=== PATIENT | female | born 1990 | race Caucasian/White ===

== ENCOUNTER 2022-02-10 19:30 | Inpatient (IN) | payer BC ==
[~2022-02-10 19:30] MED LIST: Bupivacaine 0.25% HCL 30 ML VIAL ONE; Bupivacaine PF 0.5% 30 ML VIAL ONE
[2022-02-10 20:50] VITALS: BMI 33.5
[2022-02-10] MEDS ORDERED: Zolpidem Tartrate 5 MG TAB PO PRN (21:31)
[2022-02-10] MEDS ORDERED: Acetaminophen 500 MG TAB PO PRN (21:31)
[2022-02-10] MEDS ORDERED: Misoprostol 200 MCG TAB PR PRN (21:31)
[2022-02-10] MEDS ORDERED: HYDROcodone/Acetaminophen 5/325 mg Tablet PO PRN (21:31)
[2022-02-10] MEDS ORDERED: hydrALAZINE 20 MG/ML VIAL SLOW IVP PRN (21:31)
[2022-02-10] MEDS ORDERED: Carboprost 250 MCG/ML AMP IM PRN (21:31)
[2022-02-10] MEDS ORDERED: Ondansetron PF 4 MG/2 ML Vial IVP PRN (21:31)
[2022-02-10] MEDS ORDERED: Methylergonovine 0.2 MG/ML VIAL IM PRN (21:31)
[2022-02-10] MEDS ORDERED: Promethazine HCl 25 MG/ML VIAL IM PRN (21:31)
[2022-02-10] MEDS ORDERED: Butorphanol Tartrate 1 MG/ML VIAL SLOW IVP PRN (21:31)
[2022-02-10] MEDS ORDERED: Lidocaine 1% (PF) 30 ML VIAL SC PRN (21:31)
[2022-02-10] MEDS ORDERED: Ibuprofen 800 MG TAB PO PRN (21:31)
[2022-02-10] MEDS ORDERED: Diphenoxylate HCl/Atropine Tablet PO PRN (21:31)
[2022-02-10] MEDS ORDERED: NS w/ Oxytocin 30 units 500 ML IV SCH ×2 (21:45)
[2022-02-10] MEDS: Misoprostol 100 MCG TAB VAG SCH (21:56)
[2022-02-10 22:20] LABS: Mean Corpuscular HGB CONC 35.2 g/dL (32.0-36.0); Mean Corpuscular Hemoglobin 33.6 pg (27.0-33.0); Mean Corpuscular Volume 95.5 fl (81.6-98.3); Mean Platelet Volume 12.3 fl (7.4-10.4); Platelet Count 125 10x3/uL (150-450); RBC Distribution Width 13.4 % (11.5-14.5); Red Blood Cell (RBC) Count 3.57 10x6/uL (3.90-5.03); White Blood Cell (WBC) Count 7.7 10x3/uL (3.5-10.5)
[2022-02-10] MEDS: Lactated Ringer's 1,000 ML IV SCH (22:31)
[2022-02-10 22:57] LABS: HBSAg Index 0.19 S/CO (0-0.99); Hep B Surf Ag Non-Reactive S/CO (NonReactive)
[2022-02-10 22:58] LABS: Syphilis Antibody Nonreactive (Nonreactive); Syphilis Antibody Index 0.13 S/CO (<1.00 Non-Reactive)
[2022-02-11] MEDS: Misoprostol 100 MCG TAB VAG SCH ×3 (03:31→17:07)
[2022-02-11] MEDS ORDERED: Fentanyl 2 mcg/Bup 0.1% Cadd 100 ML ONE (08:02)
[2022-02-11] MEDS ORDERED: Moisturizing Cream (Eucerin) 113 GM JAR TOP PRN (09:03)
[2022-02-11] MEDS ORDERED: diphenhydrAMINE 50 MG/ML VIAL IVP PRN (09:03)
[2022-02-11] MEDS ORDERED: ePHEDrine Sulfate 50 MG/10 ML VIAL SLOW IVP PRN (09:03)
[2022-02-11] MEDS ORDERED: Acetaminophen 325 MG TAB PO PRN (09:03)
[2022-02-11] MEDS ORDERED: Ondansetron PF 4 MG/2 ML Vial IVP PRN ×2 (09:03→13:30)
[2022-02-11] MEDS ORDERED: Naloxone HCl 0.4 mg/ml Vial IVP PRN ×2 (09:03)
[2022-02-11] MEDS ORDERED: Lactated Ringer's 500 ML IV PRN (09:03)
[2022-02-11] MEDS ORDERED: Promethazine HCl 25 MG/ML VIAL IM PRN (09:03)
[2022-02-11] MEDS ORDERED: Fentanyl 2 mcg/Bupivacaine 0.1% Cassette 100 ML EPIDURAL SCH (09:15)
[2022-02-11] MEDS ORDERED: Communication Order-Pharmacy FS SCH (09:15)
[2022-02-11] MEDS ORDERED: Tranexamic Acid 1,000 MG/10 ML VIAL ONE (12:40)
[2022-02-11] MEDS ORDERED: Carboprost 250 MCG/ML AMP ONE (12:52)
[2022-02-11] MEDS ORDERED: Oxytocin 10 UNITS/ML VIAL ONE ×2 (12:53)
[2022-02-11] MEDS ORDERED: Lanolin Ointment 7 GM TUBE TOP PRN (13:30)
[2022-02-11] MEDS ORDERED: Benzocaine-Menthol 82.5 ML CAN TOP PRN (13:30)
[2022-02-11] MEDS ORDERED: diphenhydrAMINE 25 MG CAP PO PRN (13:30)
[2022-02-11] MEDS ORDERED: Preparation H Ointment 28 GM TUBE PR PRN (13:30)
[2022-02-11] MEDS ORDERED: HYDROcodone/Acetaminophen 5/325 mg Tablet PO PRN ×2 (13:30)
[2022-02-11] MEDS ORDERED: Milk Of Magnesia 30 ML UDCUP PO PRN (13:30)
[2022-02-11] MEDS ORDERED: Boostrix 0.5 ML (Tdap) VIAL (>/=7 yrs of age) IM ONE (13:30)
[2022-02-11] MEDS ORDERED: hydrALAZINE 20 MG/ML VIAL SLOW IVP PRN (13:30)
[2022-02-11] MEDS ORDERED: Bisacodyl 10 MG SUPP PR PRN (13:30)
[2022-02-11] MEDS ORDERED: Diphenoxylate HCl/Atropine Tablet PO SCH (15:45)
[2022-02-11] MEDS: Ibuprofen 800 MG TAB PO SCH ×2 (17:02→22:11)
[2022-02-11] MEDS: Ferrous Sulfate 325 MG TAB PO SCH (17:05)
[2022-02-11] MEDS: Lactated Ringer's 1,000 ML IV SCH (17:07)
[2022-02-11] MEDS: Docusate 100 MG CAP PO SCH (22:12)
[2022-02-12 03:49] LABS: Hemoglobin 9.4 g/dL (12.0-15.5); Mean Corpuscular HGB CONC 35.1 g/dL (32.0-36.0); Mean Corpuscular Hemoglobin 34.2 pg (27.0-33.0); Mean Corpuscular Volume 97.5 fl (81.6-98.3); Mean Platelet Volume 12.6 fl (7.4-10.4); Platelet Count 108 10x3/uL (150-450); RBC Distribution Width 13.6 % (11.5-14.5); Red Blood Cell (RBC) Count 2.75 10x6/uL (3.90-5.03); White Blood Cell (WBC) Count 11.1 10x3/uL (3.5-10.5)
[2022-02-12] MEDS: Ibuprofen 800 MG TAB PO SCH ×3 (04:47→21:15)
[2022-02-12] MEDS: Ferrous Sulfate 325 MG TAB PO SCH ×2 (08:13→18:15)
[2022-02-12] MEDS: Prenatal Vitamin 1 TAB PO SCH (08:13)
[2022-02-12] MEDS: Docusate 100 MG CAP PO SCH ×2 (08:15→21:15)
[2022-02-12] MEDS ORDERED: hydrALAZINE 20 MG/ML VIAL ONE (18:20)
[2022-02-13] MEDS: Ibuprofen 800 MG TAB PO SCH ×2 (05:36→13:45)
[2022-02-13] MEDS: Docusate 100 MG CAP PO SCH (09:44)
[2022-02-13] MEDS: Ferrous Sulfate 325 MG TAB PO SCH (09:44)
[2022-02-13] MEDS: Prenatal Vitamin 1 TAB PO SCH (09:45)
[2022-02-13 11:42] VITALS: BP 133/79; TEMP 98
== END 2022-02-13 15:35 | disposition home or self-care (01) | DRG 807 ==
LOC: CSHLD 20:17 → CSHPP 02-11 16:00
PROVIDERS: ADMIT Student in an Organized Health Care Education/Training Program; ATTEND Student in an Organized Health Care Education/Training Program
PROC: 10E0XZZ Delivery of Products of Conception, External Approach (ICD-10-PCS; principal; 2022-02-11)
PROC: 3E0P7VZ Introduction of Hormone into Female Reproductive, Via Natural or Artificial Opening (ICD-10-PCS; 2022-02-11)
PROC: 10907ZC Drainage of Amniotic Fluid, Therapeutic from Products of Conception, Via Natural or Artificial Opening (ICD-10-PCS; 2022-02-11)
DX: O36.5932 Maternal care for other known or suspected poor fetal growth, third trimester, fetus 2 (principal); Z37.2 Twins, both liveborn; O30.043 Twin pregnancy, dichorionic/diamniotic, third trimester; Z3A.36 36 weeks gestation of pregnancy; J45.909 Unspecified asthma, uncomplicated; F41.9 Anxiety disorder, unspecified; Z79.82 Long term (current) use of aspirin; Z79.899 Other long term (current) drug therapy; O99.52 Diseases of the respiratory system complicating childbirth; O99.344 Other mental disorders complicating childbirth; O76 Abnormality in fetal heart rate and rhythm complicating labor and delivery; O70.0 First degree perineal laceration during delivery
CPT/HCPCS: 51702; 85027; 86780; 86850; 86900; 86901; 87340; 99285; J2210; J2590; J3490; J7120; S0020